=== PATIENT | female | born 1985 | race Two or more races ===

== ENCOUNTER 2020-03-11 18:36 | Emergency (ER) | payer MEDICAID ==
[~2020-03-11] VITALS: Ht 162.6 cm; Wt 66.0 kg
[2020-03-11 18:50] VITALS: BP 116/60
== END 2020-03-11 22:49 | disposition left against medical advice (07) ==
LOC: ER 18:36
DX: R10.2 Pelvic and perineal pain (principal); Z53.21 Procedure and treatment not carried out due to patient leaving prior to being seen by health care provider